=== PATIENT | male | born 1970 | race African-American/Black ===

== ENCOUNTER 2025-06-12 17:27 | Emergency (ER) | payer OTHER ==
[~2025-06-12] VITALS: Ht 172.7 cm; Wt 79.5 kg
[2025-06-12 17:49] VITALS: TEMP 97.8
[2025-06-12 18:05] LABS: PLATELET COUNT (AUTO) 209 K/uL (150-450); RED BLOOD CELL COUNT(AUTO) 5.31 MIL/uL (4.50-5.90); RED CELL DISTRIBUTION WIDTH 15.0 % (11.5-14.5); WHITE BLOOD COUNT (AUTO) 6.5 K/uL (4.5-11.0)
[2025-06-12 18:12] LABS: CALCIUM, TOTAL 9.0 mg/dL (8.8-10.5); CREATININE 0.83 mg/dL (0.60-1.30); GLOMERULAR FILTR. RATE CALC > 60 mL/min (>60); GLUCOSE,RANDOM 96 mg/dL (70-110); SODIUM SERUM 143 mmol/L (136-145); UREA NITROGEN, BLOOD 8 mg/dL (7-18)
[2025-06-12 18:20] LABS: TROPONIN I-HIGH SENSITIVITY 8 ng/L (<76)
[2025-06-12 19:45] VITALS: BP 169/97; PULSE 55; RESP 16; O2SAT 98
== END 2025-06-12 20:41 ==
LOC: EMS 17:33
DX: G43.909 Migraine, unspecified, not intractable, without status migrainosus (principal); I10 Essential (primary) hypertension; F20.9 Schizophrenia, unspecified; G89.29 Other chronic pain; F31.9 Bipolar disorder, unspecified; Z87.820 Personal history of traumatic brain injury
CPT/HCPCS: 80048; 84484; 85025; 93005; 99284

== ENCOUNTER 2025-06-26 07:17 | Inpatient (IN) | payer OTHER ==
[~2025-06-26] VITALS: Ht 175.3 cm; Wt 85.5 kg
[2025-06-26 08:15] LABS: PLATELET COUNT (AUTO) 245 K/uL (150-450); RED BLOOD CELL COUNT(AUTO) 5.22 MIL/uL (4.50-5.90); RED CELL DISTRIBUTION WIDTH 14.3 % (11.5-14.5); WHITE BLOOD COUNT (AUTO) 5.3 K/uL (4.5-11.0)
[2025-06-26 08:26] LABS: CALCIUM, TOTAL 8.7 mg/dL (8.8-10.5); CREATININE 1.03 mg/dL (0.60-1.30); GLOMERULAR FILTR. RATE CALC > 60 mL/min (>60); GLUCOSE,RANDOM 108 mg/dL (70-110); SODIUM SERUM 142 mmol/L (136-145); UREA NITROGEN, BLOOD 19 mg/dL (7-18)
[2025-06-26] MEDS: MORPHINE SULFATE 4 MG/ML SYRINGE IVP ONE (08:35)
[2025-06-26] MEDS: ONDANSETRON HCL 4 MG/2 ML VIAL IVP ONE (08:35)
[2025-06-26] MEDS: SODIUM CHLORIDE 0.9% 1,000 ML IV ONE (08:35)
[2025-06-26 08:37] LABS: CREATINE KINASE, TOTAL ONLY 61 U/L (39-308)
[2025-06-26 10:23] LABS: APPEARANCE,URINE CLEAR (CLEAR); GLUCOSE, URINE (UA) NEGATIVE (NEGATIVE); LEUKOCYTE ESTERASE ,URINE NEGATIVE (NEGATIVE); NITRATE,URINE NEGATIVE (NEGATIVE); OCCULT BLOOD,URINE NEGATIVE (NEGATIVE); SPECIFIC GRAVITIY, URINE 1.009 (1.003-1.030)
[2025-06-26 10:29] LABS: ALCOHOL, URINE DRUG SCREEN NEGATIVE (NEGATIVE); AMPHET/METH SCREEN,URINE NEGATIVE (NEGATIVE); BARBITURATE SCREEN, URINE NEGATIVE (NEGATIVE); CANNABINOID SCREEN,URINE POSITIVE (NEGATIVE); COCAINE SCREEN,URINE NEGATIVE (NEGATIVE); METHADONE SCREEN, URINE NEGATIVE (NEGATIVE)
[2025-06-26 10:34] LABS: PH,URINE DRUG SCREEN 7.5 (5.0-8.0)
[2025-06-26] MEDS ORDERED: ZOLPIDEM TARTRATE 5 MG TABLET PO PRN (15:30)
[2025-06-26] MEDS ORDERED: BISACODYL 10 MG RECTAL RECTAL SUPPOSITORY PR PRN (15:30)
[2025-06-26] MEDS ORDERED: MORPHINE SULFATE 2 MG/ML SYRINGE IVP PRN (15:30)
[2025-06-26] MEDS ORDERED: ACETAMINOPHEN 325 MG TABLET PO PRN (15:30)
[2025-06-26] MEDS ORDERED: ALBUTEROL SULFATE 2.5 MG/0.5 ML NEB SOLUTION NEB PRN (15:30)
[2025-06-26] MEDS ORDERED: ONDANSETRON HCL 4 MG/2 ML VIAL IVP PRN (15:30)
[2025-06-26] MEDS ORDERED: IPRATROPIUM BROMIDE 0.5 MG/2.5 ML NEB SOLUTION NEB PRN (15:30)
[2025-06-26] MEDS ORDERED: MAGNESIUM HYDROXIDE SUSPENSION 30 ML UDCUP PO PRN (15:30)
[2025-06-26] MEDS ORDERED: ACET-2247 PO (15:48)
[2025-06-26] MEDS ORDERED: SUMA25TA15 PO (15:48)
[2025-06-26] MEDS ORDERED: HYDR30CR39 TP (15:48)
[2025-06-26] MEDS ORDERED: AMLO-257 PO (15:48)
[2025-06-26] MEDS ORDERED: PROP40TA7 PO (15:48)
[2025-06-26] MEDS ORDERED: HYDR30OI13 TP (15:48)
[2025-06-26] MEDS: HYDROCODONE/ACETAMINOPHEN 5-325 MG TABLET PO PRN (16:11)
[2025-06-26] MEDS: HEPARIN SODIUM,PORCINE 5,000 UNITS/ML VIAL SQ SCH (16:11)
[2025-06-26 18:56] VITALS: BP 129/82; PULSE 56; RESP 18; TEMP 98.4; O2SAT 99
[2025-06-26 20:07] VITALS: BP 117/84; PULSE 69; RESP 18; TEMP 97.9; O2SAT 100
[2025-06-26] MEDS: PROPRANOLOL HCL 40 MG TABLET PO SCH (22:19)
[2025-06-27 00:15] VITALS: BP 108/60; PULSE 62; RESP 17; TEMP 97.9; O2SAT 99
[2025-06-27 05:40] VITALS: BP 121/69; PULSE 64; RESP 18; TEMP 97.9; O2SAT 99
[2025-06-27 08:10] VITALS: BP 126/73; PULSE 65; RESP 18; TEMP 98; O2SAT 99
[2025-06-27] MEDS: PANTOPRAZOLE SODIUM 40 MG DR TABLET PO SCH (08:49)
[2025-06-27 08:57] VITALS: BP 117/73; PULSE 54; RESP 19; TEMP 98.1; O2SAT 98
[2025-06-27 12:37] VITALS: BP 129/81; PULSE 47; RESP 19; TEMP 97.7; O2SAT 98
[2025-06-27 16:52] VITALS: BP 120/71; PULSE 54; RESP 19; TEMP 97.7; O2SAT 98
[2025-06-28 09:29] LABS: TROPONIN I-HIGH SENSITIVITY 7 ng/L (<76)
== END 2025-06-27 17:20 | DRG 552 ==
LOC: EMS 07:40 → EDH 10:23 → 5S 15:15
PROVIDERS: ADMIT Hospitalist; ATTEND Hospitalist
DX: M54.59 Other low back pain (principal); R55 Syncope and collapse; G89.29 Other chronic pain; K58.9 Irritable bowel syndrome, unspecified; G43.909 Migraine, unspecified, not intractable, without status migrainosus; G83.24 Monoplegia of upper limb affecting left nondominant side; F41.9 Anxiety disorder, unspecified; I10 Essential (primary) hypertension; F31.9 Bipolar disorder, unspecified; F20.9 Schizophrenia, unspecified; S00.83XA Contusion of other part of head, initial encounter; W18.39XA Other fall on same level, initial encounter; Y93.89 Activity, other specified; Y92.148 Other place in prison as the place of occurrence of the external cause; Y99.8 Other external cause status; Z91.52 Personal history of nonsuicidal self-harm; Z87.820 Personal history of traumatic brain injury
CPT/HCPCS: 70450; 71045; 72131; 80048; 80307; 81003; 82550; 83880; 84484; 85025; 85610; 85730; 93005; 93306; 93880; 96361; 96374; 96375; 97162; 99285; J1644; J2270; J2405; 36415-L1; 36415-TC